=== PATIENT | male | born 1980 | race Caucasian/White ===

== ENCOUNTER 2017-10-02 19:02 | Emergency (ER) | payer SELFPAY ==
[2017-10-02 19:15] VITALS: BP 114/73; PULSE 109; TEMP 99.1; BMI 42.7
[2017-10-02] MEDS ORDERED: ONDANSETRON *ODT* 4 MG TABLET SL ONE (21:08)
--- NOTE | 2017-10-02 21:12 | PDOC ---
History of Present Illness - General Chief Complaint: Cold Symptoms Stated Complaint: STOMACH PAIN Time Seen by Provider: 10/02/17 20:25 - History of Present Illness Initial Comments: 10/02/17 21:09 CHIEF COMPLAINT: headache, nausea HISTORY OF PRESENT ILLNESS: 36 yo M with hx of hemorrhoids and gastritis presents to fast track with headache and nausea x 2 weeks. Patient reports he was seen at another facility a few days ago and "the doctor told me I had migraines." Patient was prescribed simethicone, omeprazole, and excedrin, but patient reports that "I get dizzy" when he takes excedrin. He reports "I feel something weird with my stomach" and that he has slight nausea after eating but denies any vomiting or diarrhea. Patient points to epigastrum when describing abdomianl discomfort. Patient denies any fever, chills. No recent travel or sick contacts. PAST MEDICAL HISTORY: Denies past medical history FAMILY HISTORY: Denies SOCIAL HISTORY: Denies tobacco, alcohol, illicit drug use. SURGICAL HISTORY: Denies ALLERGIES: No known drug allergies REVIEW OF SYSTEMS General/Constitutional: Denies fever or chills. Denies weakness, weight change. HEENT: Denies change in vision. Denies ear pain or discharge. Denies sore throat. Cardiovascular: Denies chest pain or shortness of breath. Respiratory: Denies cough, wheezing, or hemoptysis. Gastrointestinal: Nausea. Denies vomiting, diarrhea or constipation. Denies rectal bleeding. Genitourinary: Denies dysuria, frequency, or change in urination. Musculoskeletal: Denies joint or muscle swelling or pain. Denies neck or back pain. Skin and breasts: Denies rash or easy bruising. Neurologic: Headache, vertigo. Denies loss of consciousness, or loss of sensation. PHYSICAL EXAM General Appearance: Well-appearing, appropriately dressed. No apparent distress. HEENT: EOMI, PERRLA. No conjunctival pallor. No photophobia, scleral icterus. Respiratory/Chest: Lungs CTAB. Cardiovascular: RRR. S1, S2. Gastrointestinal/Abdominal: Normal bowel sounds. Abdomen soft, non-distended. No tenderness or rebound tenderness. No organomegaly, pulsatile mass, guarding , hernia, hepatomegaly, splenomegaly. Musculoskeletal/Extremities: Normal inspection. FROM of all extremities, normal capillary refill. Pelvis Stable. No CVA tenderness. No tenderness to extremities, pedal edema, swelling, erythema or deformity. Integumentary: Appropriate color, dry, warm. No cyanosis, erythema, jaundice or rash Neurologic: parts processor II-XII intact. Fully oriented, alert. Appropriate mood/affect. Motor strength 5/5. No appreciable EOM palsy, facial droop or sensory deficit. 10/02/17 21:13 Past History - Past Medical History Allergies/Adverse Reactions: Allergies Allergy/AdvReac Type Severity Reaction Status Date / Time No Known Allergies Allergy Verified 04/26/16 08:33 Home Medications: Ambulatory Orders Ibuprofen [Motrin -] 600 mg PO TID PRN #21 tablet 10/02/17 Ondansetron [Zofran *Odt*] 8 mg SL TID PRN #21 od.tablet 10/02/17 GI Disorders: Yes (gastritis) Disorders: Yes (hematuria) - Suicide/Smoking/Psychosocial Hx Smoking History: Former smoker Have you smoked in the past 12 months: No Number of Cigarettes Smoked Daily: 4 If you are a former smoker, when did you quit?: 2016 Information on smoking cessation initiated: No Hx Alcohol Use: No Drug/Substance Use Hx: No Substance Use Type: None *Physical Exam - Vital Signs Last Vital Signs Temp Pulse Resp BP Pulse Ox 99.1 F 109 H 20 114/73 99 10/02/17 19:11 10/02/17 19:11 10/02/17 19:11 10/02/17 19:11 10/02/17 19:11 Medical Decision Making - Medical Decision Making 10/02/17 21:12 36 yo M with hx of hemorrhoids and gastritis presents to fast track with headache and nausea x 2 weeks. -POC glucose 10/02/17 21:38 Glucose 103. Zofran given. Patient reassessed, states his nausea has resolved but he still feels "a little headache." Patient admits that he has not been drinking a lot of water and he feels "very thirsty lately." Advised patient to drink lots of fluids and follow up with GI and neuro. Patient verbalized understanding and agrees to plan. *DC/Admit/Observation/Transfer Diagnosis at time of Disposition: Nausea Headache Qualifiers: Headache type: unspecified Headache chronicity pattern: unspecified pattern Intractability: not intractable Qualified Code(s): R51 - Headache - Discharge Dispostion Disposition: HOME Condition at time of disposition: Stable Admit: No - Prescriptions Prescriptions: Ibuprofen [Motrin -] 600 mg PO TID PRN #21 tablet PRN Reason: Headache Ondansetron [Zofran *Odt*] 8 mg SL TID PRN #21 od.tablet PRN Reason: Nausea And/Or Vomiting - Referrals Referrals: Dudley Santillan MD [Staff Physician] - Thad Beck MD [Staff Physician] - Colton Almanzar MD [Staff Physician] - - Patient Instructions Printed Discharge Instructions: DI for Headache, DI for Nausea -- Adult Additional Instructions: Please take medications as prescribed and drink LOTS of fluids for hydration. You may stop taking the Excedrin that was prescribed to you, but continue all other medications. Follow up with a primary care doctor and neurologist THIS WEEK for further evaluation. Please continue to see your adding machine operator for your abdominal discomfort. If you develop blurry vision, difficulty speaking, sudden weakness, difficulty walking, persistent vomiting or diarrhea, or any new or worsening symptoms, please return to the ER. Print Language: SLOVENIAN - Post Discharge Activity
[2017-10-02] MEDS ORDERED: ONDANSETRON *ODT* 4 MG TABLET ONE (21:15)
== END 2017-10-02 21:45 | disposition home or self-care (01) ==
LOC: JERFT 19:02
DX: R51 Headache (principal); R11.0 Nausea
CPT/HCPCS: 99281-25